=== PATIENT | female | born 1960 | race Caucasian/White ===

== ENCOUNTER 2018-07-11 10:24 | Outpatient (REF) | payer SELFPAY ==
[2018-07-11 22:50] LABS: ALT 48 U/L (12-78); AST 24 U/L (15-37); Albumin 3.8 g/dL (3.4-5.0); Alkaline Phosphatase 58 U/L (46-116); Anion Gap 11.9 mmol/L (3-11); BUN 18 mg/dL (7-18); Bilirubin, Total 0.5 mg/dL (0.2-1.0); CO2 28.1 mmol/L (21.0-32.0); CREATININE 0.79 mg/dL (0.55-1.02); Calcium 9.7 mg/dL (8.5-10.1); Calculated LDL 116; Chloride 100 mmol/L (98-107); Cholesterol 191 mg/dL (50-200); Glucose 181 mg/dL (70-100); HDL Cholesterol 31 mg/dL (40-60); Sodium 140 mmol/L (136-145); Total Protein 7.5 g/dL (6.4-8.2); Triglyceride 224 mg/dL (30-150)
== END 2018-07-11 10:44 ==
LOC: NCHCN 10:24
PROVIDERS: PCP Family Medicine; Visit Provider Family Medicine
DX: Z00.00 Encounter for general adult medical examination without abnormal findings (principal); E11.9 Type 2 diabetes mellitus without complications; R74.0 Nonspecific elevation of levels of transaminase and lactic acid dehydrogenase [LDH]; E78.6 Lipoprotein deficiency
CPT/HCPCS: 80053; 80061; 83721

== ENCOUNTER 2019-01-16 18:58 | Outpatient (REF) | payer SELFPAY ==
[2019-01-16 21:31] LABS: COMMENT (LAB VIEW ONLY) 156.21 mg/dL; Microalb ug/mg Crea 8.1 ug/mg Cr
== END 2019-01-16 19:18 ==
LOC: NCHCN 18:58
PROVIDERS: PCP Family Medicine; Visit Provider Family Medicine
DX: E11.9 Type 2 diabetes mellitus without complications (principal)
CPT/HCPCS: 82043; 82570

== ENCOUNTER 2021-01-16 14:17 | Outpatient (REF) | payer SELFPAY ==
[2021-01-16 16:06] LABS: Anion Gap 9.9 mmol/L (3-11); BUN 22 mg/dL (7-18); CO2 30.1 mmol/L (21.0-32.0); CREATININE 0.9 mg/dL (0.55-1.02); Calcium 9.2 mg/dL (8.5-10.1); Calculated LDL 126 mg/dL (<100); Chloride 99 mmol/L (98-107); Cholesterol 213 mg/dL (<200); Glucose 248 mg/dL (74-106); HDL Cholesterol 34 mg/dL (40-60); Sodium 139 mmol/L (136-145); Triglyceride 267 mg/dL (<150)
== END 2021-01-16 14:18 | disposition home or self-care (01) ==
LOC: NCHCN 14:17
PROVIDERS: PCP Family Medicine; Visit Provider Family Medicine
DX: E11.9 Type 2 diabetes mellitus without complications (principal); E78.6 Lipoprotein deficiency
CPT/HCPCS: 80048; 80061

== ENCOUNTER 2021-05-15 23:19 | Outpatient (REF) | payer SELFPAY ==
[2021-05-15 18:30] LABS: COMMENT (LAB VIEW ONLY) 63.36 mg/dL; Microalb ug/mg Crea 6.8 ug/mg Cr
== END 2021-05-15 23:20 | disposition home or self-care (01) ==
LOC: NCHCN 23:19
PROVIDERS: PCP Family Medicine; Visit Provider Family Medicine
DX: E11.9 Type 2 diabetes mellitus without complications (principal)
CPT/HCPCS: 82043; 82570